=== PATIENT | female | born 1965 | race Caucasian/White ===

== ENCOUNTER 2017-12-17 07:20 | Day surgery (SDC) | payer BC ==
[~2017-12-17 07:20] MED LIST: Buffered Lidocaine 0.9% SYRIN* 5 ML/SYR SYRINGE INTRADERM ONE; Buffered Lidocaine 0.9% SYRIN* 5 ML/SYR SYRINGE ONE; Dexamethasone IV* 4 MG/ML 1 ML (4 MG) ONE; Dexamethasone TAB* 4 MG PO ONE; Famotidine IV* 10 MG/ML 2 ML (20 mg) IV ONE; Famotidine TAB* 20 MG ONE; ceFAZolin 2 GM PREMIX (*) 2 GM/50 ML BAG IVPB ONE
[2017-12-17] MEDS ORDERED: Famotidine IV* 10 MG/ML 2 ML (20 mg) ONE (07:22)
[2017-12-17] MEDS ORDERED: fentaNYL* 50 MCG/ML 2 ML VIAL (100 MCG VIAL) ONE (08:36)
[2017-12-17] MEDS ORDERED: Propofol* 10 MG/ML 20 ML BTL IV PUSH ONE (08:36)
[2017-12-17] MEDS ORDERED: Lidocaine 2% PF * 5 ML VIAL ONE (08:36)
[2017-12-17] MEDS ORDERED: Midazolam* 1 MG/ML 2 ML VIAL (2 MG) ONE (08:36)
[2017-12-17] MEDS ORDERED: Ketorolac INJ* 30 MG/ML 1 ML VIAL ONE (08:59)
[2017-12-17] MEDS ORDERED: Ondansetron INJ* 2 MG/ML VIAL ONE (09:26)
[2017-12-17] MEDS ORDERED: Naloxone* 0.4 MG/ML 1 ML VIAL IV PRN (09:51)
[2017-12-17] MEDS ORDERED: oxyCODONE TAB* 5 MG TAB PO PRN (09:51)
[2017-12-17] MEDS ORDERED: Acetaminophen TAB* 325 MG PO PRN (09:51)
[2017-12-17] MEDS ORDERED: HYDROcodone/ACETAMIN 5-325 MG* 1 TAB PO PRN (09:51)
[2017-12-17] MEDS ORDERED: fentaNYL* 50 MCG/ML 2 ML VIAL (100 MCG VIAL) IV PRN (09:51)
[2017-12-17] MEDS ORDERED: PROCHLORPERAZINE INJ 5 MG/ML 2 ML VIAL IV PRN (09:51)
[2017-12-17] MEDS ORDERED: HYDROcodone/ACETAMIN 5-325 MG* 1 TAB ONE (10:19)
[2017-12-17 12:34] VITALS: BP 134/89
--- NOTE | 2017-12-17 21:05 | OP ---
DATE OF OPERATION: 12/17/17 - [facility] DATE OF : 69 SURGEON: Jose Stroud MD ANESTHESIOLOGIST: Dr. Laura. ANESTHESIA: General endotracheal anesthesia. PRE-OP DIAGNOSIS: Heavy postmenopausal bleeding, on Xarelto. POST-OP DIAGNOSIS: Heavy postmenopausal bleeding, on Xarelto. OPERATIVE PROCEDURE: Dilation, hysteroscopy, curettage, NovaSure ablation. ESTIMATED BLOOD LOSS: Less than 20 cc. FINDINGS: Small anteverted uterus, midline cervix, large rectocele, the endometrium appeared pink throughout. No polyps were seen. COMPLICATIONS: None. COUNT: Sponge, lap, and needle count were correct x2. CONDITION: The patient was brought to recovery room in stable condition. DESCRIPTION OF PROCEDURE: The patient was brought to the operating room. When general anesthesia was found to be adequate, the patient was prepped and draped in the usual sterile fashion in the dorsal lithotomy position. Sequential compression devices were placed and activated. Time-out was performed. Exam under anesthesia was performed with the above findings noted. Weighted speculum was placed in the vagina. The anterior lip of the cervix was grasped with a single-tooth tenaculum and the cervix was gently and easily dilated with the Hegar dilators. Cervical length was found to be 3.5 cm. The sounding length was 7.5. The cavity length was 4 cm. The curettage was performed. Endometrial curettings were sent to Pathology. The NovaSure was introduced. The cavity width was found to be 2.5. The NovaSure was tested and after that was successful, the NovaSure was activated. Ablation time was 1 minute and 46 seconds. The NovaSure was easily removed. The hysteroscope was reintroduced. An excellent result was seen throughout the cavity. The hysteroscope was removed. The single-tooth tenaculum was removed from the anterior lip of the cervix. Excellent hemostasis was noted and the patient was brought to recovery room, awake and in stable condition. [id number]/[facility] #: [id number] [facility]ITAL[facility]
== END 2017-12-17 12:12 | disposition home or self-care (01) ==
LOC: OR 07:20
PROVIDERS: ATTEND Obstetrics & Gynecology
DX: N95.0 Postmenopausal bleeding (principal); Z79.01 Long term (current) use of anticoagulants; N84.0 Polyp of corpus uteri; Z86.718 Personal history of other venous thrombosis and embolism; D45 Polycythemia vera; I10 Essential (primary) hypertension; Z72.0 Tobacco use; R87.610 Atypical squamous cells of undetermined significance on cytologic smear of cervix (ASC-US); R87.810 Cervical high risk human papillomavirus (HPV) DNA test positive
CPT/HCPCS: 88305; A9270-GY; J0690; J1100; J1885; J2250; J2405; J2704; J3010

== ENCOUNTER 2018-03-19 09:46 | Inpatient (IN) | payer BC ==
[2018-03-19] MEDS ORDERED: NS 0.9% 1000 ML* 1,000 ML IV ONE ×2 (10:00→12:42)
[2018-03-19] MEDS ORDERED: Ondansetron INJ* 2 MG/ML VIAL IV ONE (10:11)
[2018-03-19] MEDS ORDERED: Morphine VIAL* 10 MG/ML 1 ML VIAL IV ONE (10:11)
[2018-03-19] MEDS ORDERED: Ondansetron INJ* 2 MG/ML VIAL ONE (10:13)
[2018-03-19] MEDS ORDERED: Morphine VIAL* 4 MG/ML VIAL (1 ml vial) IV ONE (10:13)
[2018-03-19] MEDS ORDERED: HYDROmorphone INJ* 1 MG/ML CARPUJECT SYRINGE IV ONE (10:29)
[2018-03-19] MEDS ORDERED: HYDROmorphone INJ* 2 MG/ML CARPUJECT SYRINGE IV ONE (10:29)
[2018-03-19 10:36] LABS: ABS Basophils 0 10^3/ul (0-0.2); ABS Eosinophils 0.1 10^3/ul (0-0.6); ABS Lymphocytes 1.2 10^3/ul (1.0-4.8); ABS Monocytes 0.5 10^3/ul (0-0.8); ABS Neutrophils 3.8 10^3/ul (1.5-7.7); ABS Nucleated RBC 0 10^3/ul; Eosinophil % 1.5 % (0-6); Hematocrit 45 % (35-47); Hemoglobin 14.4 g/dl (12.0-16.0); Lymphocyte % 21.6 % (25-47); Mean Corpuscular HGB Conc 32 g/dl (31-36); Mean Corpuscular Hemoglobin 29 pg (27-31); Mean Corpuscular Volume 90 fL (80-97); Mean Platelet Volume 8.2 um3 (7.4-10.4); Nucleated Red Blood Cells % 0.1; Platelet Count 312 10^3/ul (150-450); Red Blood Count 5.05 10^6/ul (4.0-5.4); Red Cell Distribution Width 20 % (10.5-15); White Blood Count 5.6 10^3/ul (3.5-10.8)
[2018-03-19] MEDS ORDERED: HYDROmorphone INJ* 2 MG/ML CARPUJECT SYRINGE ONE (10:36)
[2018-03-19 10:49] LABS: EGFR Non-African American 114.6 (>60); INR 1.52 (0.77-1.02)
--- NOTE | 2018-03-19 11:28 | RAD ---
Indication: Abdominal pain, vomiting. CT of the abdomen and pelvis was performed without oral or IV contrast administration. Coronal and sagittal reconstructed images were obtained. The lung bases demonstrate no pleural fluid, pneumonia or pneumothorax. Heart demonstrates no pericardial effusion. Liver is normal in size. No focal lesions or intrahepatic ductal dilatation is noted. The gallbladder demonstrates likely gallstones. No pericholecystic fluid or wall thickening is noted. The spleen demonstrates calcifications likely from calcified granulomas. The pancreas demonstrates no mass or pancreatic duct dilatation. The common duct is not dilated. No adrenal masses are noted. The kidneys demonstrate no hydronephrosis in either kidney. The urinary bladder is unremarkable. There is a small supraumbilical hernia containing fat. No bowel herniation or strangulation is noted. There is extensive diverticulosis without definite evidence of diverticulitis is noted. There is no evidence of free air to suggest perforation. The bony structures are grossly unremarkable. Pelvic ring is otherwise unremarkable. IMPRESSION: No evidence of abnormal masses are identified. Diverticulosis without definite evidence of diverticulitis. Cholelithiasis without biliary duct dilatation. There is a supraumbilical hernia containing omentum. No evidence of free air is noted. No evidence of obstructive uropathy.
[2018-03-19] MEDS ORDERED: HYDROmorphone INJ* 2 MG/ML CARPUJECT SYRINGE IV SLOW PU ONE (11:46)
[2018-03-19 13:20] LABS: Urine Appearance Cloudy; Urine Blood 1+ (Negative); Urine Color Yellow; Urine Ketones Trace (Negative); Urine Protein Negative (Negative); Urine Urobilinogen Negative (Negative)
--- NOTE | 2018-03-19 13:51 | RAD ---
Indication: Right upper quadrant pain. Real-time sonography of the right upper quadrant was performed. Liver is normal in size measuring 16.2 cm in length. No focal lesions or intrahepatic ductal dilatation is noted. The gallbladder demonstrates multiple gallstones with mild gallbladder wall thickening measuring 3.6 mm. No pericholecystic fluid is identified. There is sludge within the gallbladder. The patient does have a positive sonographic Brown's sign. Common duct measures 7 mm. The right kidney measures 11.3 x 5.5 x 6.3 cm. The pancreas head, neck and proximal body demonstrates no mass or pancreatic duct dilatation. IMPRESSION: Cholelithiasis with mild gallbladder wall thickening measuring up to 3.6 mm. Patient does have a positive sonographic Brown's sign.
[2018-03-19] MEDS ORDERED: HYDROcodone/ACETAMIN 5-325 MG* 1 TAB PO PRN (15:00)
[2018-03-19] MEDS ORDERED: Ondansetron INJ* 2 MG/ML VIAL IV PRN (15:00)
[2018-03-19] MEDS ORDERED: Piperacillin/Tazobac ADVAN(*) 3.375 GM in NS 0.9% 100 ML* 100 ML IVPB ONE (15:21)
[2018-03-19] MEDS ORDERED: Piperacillin/Tazobac (*) 3.375 GM BAG ONE (15:32)
[2018-03-19] MEDS: NS 0.9% 1000 ML* 1,000 ML IV SCH (15:36)
[2018-03-19] MEDS ORDERED: Labetalol IV* 5 MG/ML 20 ML VIAL IV PUSH PRN (15:53)
[2018-03-19] MEDS ORDERED: ceFOXitin 2 GM IVPREMIX* 2 GM/50 ML BAG IVPB SCH (16:00)
[2018-03-19] MEDS ORDERED: Zosyn per Pharmacy* NOTE FOLLOW UP SCH (16:00)
[2018-03-19] MEDS ORDERED: ZOSYN 3.375 GM x ONE DOSE over 30 miuntes IVPB ×2 (16:00)
[2018-03-19] MEDS: HYDROmorphone INJ* 2 MG/ML CARPUJECT SYRINGE IV SLOW PU PRN ×5 (16:42→23:29)
--- NOTE | 2018-03-19 16:44 | ED ---
Freddy Astorga Jennifer, scribed for Soham Neal MD on 03/19/18 at 1013 . Abdominal Pain/Female - HPI Summary HPI Summary: The patient is a 52 year old female who presents with severe upper abdominal pain when she woke up this morning. The patient had a colonoscopy yesterday. She additionally complains of vomiting and feeling bloated. - History of Current Complaint Chief Complaint: EDAbdPain Stated Complaint: VOMITING/ABD PAIN Time Seen by Provider: 03/19/18 09:59 Hx Obtained From: Patient Hx Last Menstrual Period: PERIMENOPAUSAL Onset/Duration: Sudden Onset, Lasting Hours, Still Present, Worse Since - this morning Timing: Constant Severity Initially: Severe Severity Currently: Severe Pain Intensity: 10 Pain Scale Used: 0-10 Numeric Location: Diffuse Radiates: No Aggravating Factor(s): Nothing Alleviating Factor(s): Nothing Associated Signs and Symptoms: Positive: Vomiting, Other: - Bloating Allergies/Adverse Reactions: Allergies Allergy/AdvReac Type Severity Reaction Status Date / Time Adhesive Tape Allergy Itching Verified 03/19/18 10:17 LAUNDRY DETERGENT AdvReac Mild Rash And Uncoded 03/19/18 10:17 Itching Home Medications: Home Medications Citalopram TAB* [CeleXA TAB*] 20 mg PO DAILY 03/19/18 [History Confirmed ] Metoprolol Tartrate TAB* [Lopressor TAB*] 25 mg PO BID 03/19/18 [History Confirmed 03/19/18] Omeprazole CAP* [Prilosec CAP* 20 MG] 40 mg PO DAILY 03/19/18 [History Confirmed 03/19/18] Rivaroxaban TAB(*) [Xarelto 20 mg] 20 mg PO DAILY 03/19/18 [History Confirmed ] amLODIPine TAB* [Norvasc 5 mg TAB*] 5 mg PO DAILY 03/19/18 [History Confirmed ] clonazePAM TAB(*) [KlonoPIN TAB(*)] 0.5 mg PO TID PRN 03/19/18 [History Confirmed 03/19/18] PMH/Surg Hx/FS Hx/Imm Hx Endocrine/Hematology History: Denies: Hx Diabetes, Hx Thyroid Disease Cardiovascular History: Reports: Hx Hypertension - ON MEDICATON, Other Cardiovascular Problems/Disorders - PRE VENTRICAL CONTARACTIONS AND MITRAL REGURITATION Respiratory History: Reports: Hx Sleep Apnea Denies: Hx Asthma, Hx Chronic Obstructive Pulmonary Disease (COPD) GI History: Reports: Hx Gastroesophageal Reflux Disease - ON MEDICATION, Hx Hiatal Hernia Denies: Hx Ulcer History: Denies: Hx Renal Disease Sensory History: Reports: Hx Contacts or Glasses - GLASSES Denies: Hx Hearing Aid Opthamlomology History: Reports: Hx Contacts or Glasses - GLASSES Psychiatric History: Reports: Hx Anxiety - ON MEDICATION, Hx Depression - Cancer History Hx Chemotherapy: No Hx Radiation Therapy: No - Surgical History Surgery Procedure, Year, and Place: facial reconstruction - multiple. titanium plate under right eye. D&C. LAPAROSCOPY [facility]. LASER SURGERY DYSPLASIA [facility]. PLASTIC SURGERY [facility] Anesthesia Reactions: Yes - BAD HEADACHE Infectious Disease History: No Infectious Disease History: Denies: Hx Hepatitis, Hx Human Immunodeficiency Virus (HIV), Traveled Outside the [place] in Last 30 Days - Family History Known Family History: Negative: Renal Disease - Social History Alcohol Use: Daily Alcohol Amount: 2-3 beers Substance Use Type: Reports: None, Prescribed Smoking Status (MU): Heavy Every Day Tobacco Smoker Type: Cigarettes Amount Used/How Often: 3/4-1PPD Length of Time of Smoking/Using Tobacco: "far too many" Have You Smoked in the Last Year: No Review of Systems Negative: Fever Positive: Abdominal Pain, Vomiting, Other - Feeling bloated All Other Systems Reviewed And Are Negative: Yes Physical Exam - Summary Physical Exam Summary: General: moderate pain distress Skin: warm, color reflects adequate perfusion, dry Head: normal Eyes: EOMI, JERRICA ENT: normal Neck: supple, nontender Respiratory: CTA, breath sounds present Cardiovascular: RRR Abdomen: tympanitic to percussion, diffuse tenderness, worse in the upper abdomen Bowel: high pitched bowel sounds Musculoskeletal: normal, strength/ROM intact Neurological: normal, sensory/motor intact, A&O x3 Psychological: affect/mood appropriate Triage Information Reviewed: Yes Vital Signs On Initial Exam: Initial Vitals Temp Pulse Resp BP Pulse Ox 97 F 77 22 127/94 100 03/19/18 09:59 03/19/18 09:59 03/19/18 09:59 03/19/18 09:59 03/19/18 09:59 Vital Signs Reviewed: Yes Diagnostics - Vital Signs Vital Signs Temp Pulse Resp BP Pulse Ox 04/21/18 09:59 97 F 77 22 127/94 100 - Laboratory Lab Results: Lab Results 03/19/18 03/19/18 03/19/18 Range/Units 10:05 10:05 10:05 WBC 5.6 (3.5-10.8) 10^3/ul RBC 5.05 (4.0-5.4) 10^6/ul Hgb 14.4 (12.0-16.0) g/dl Hct 45 (35-47) % MCV 90 (80-97) fL MCH 29 (27-31) pg MCHC 32 (31-36) g/dl RDW 20 H (10.5-15) % Plt Count 312 (150-450) 10^3/ul MPV 8.2 (7.4-10.4) um3 Neut % (Auto) 66.8 (38-83) % Lymph % (Auto) 21.6 L (25-47) % [place] % (Auto) 9.5 H (0-7) % Eos % (Auto) 1.5 (0-6) % Baso % (Auto) 0.6 (0-2) % Absolute Neuts (auto) 3.8 (1.5-7.7) 10^3/ul Absolute Lymphs (auto) 1.2 (1.0-4.8) 10^3/ul Absolute Monos (auto) 0.5 (0-0.8) 10^3/ul Absolute Eos (auto) 0.1 (0-0.6) 10^3/ul Absolute Basos (auto) 0 (0-0.2) 10^3/ul Absolute Nucleated RBC 0 10^3/ul Nucleated RBC % 0.1 INR (Anticoag Therapy) 1.52 H (0.77-1.02) APTT 38.1 H (26.0-36.3) seconds Sodium 139 (139-145) mmol/L Potassium 3.7 (3.5-5.0) mmol/L Chloride 104 (101-111) mmol/L Carbon Dioxide 23 (22-32) mmol/L Anion Gap 12 H (2-11) mmol/L BUN 6 (6-24) mg/dL Creatinine 0.56 (0.51-0.95) mg/dL Est GFR ( Amer) 147.4 (>60) Est GFR (Non-Af Amer) 114.6 (>60) BUN/Creatinine Ratio 10.7 (8-20) Glucose 132 H (70-100) mg/dL Lactic Acid (0.5-2.0) mmol/L Calcium 9.1 (8.6-10.3) mg/dL Total Bilirubin 0.20 (0.2-1.0) mg/dL AST 20 (13-39) U/L ALT 16 (7-52) U/L Alkaline Phosphatase 139 H (34-104) U/L Total Creatine Kinase 78 (10-223) U/L CK-MB (CK-2) 2.2 (0.6-6.3) ng/mL Troponin I 0.00 (<0.04) ng/mL C-Reactive Protein 13.87 H (< 5.00) mg/L Total Protein 7.0 (6.4-8.9) g/dL Albumin 3.9 (3.2-5.2) g/dL Globulin 3.1 (2-4) g/dL Albumin/Globulin Ratio 1.3 (1-3) Lipase 38 (11.0-82.0) U/L Urine Color Urine Appearance Urine pH (5-9) Ur Specific [place] (1.010-1.030) Urine Protein (Negative) Urine Ketones (Negative) Urine Blood (Negative) Urine Nitrate (Negative) Urine Bilirubin (Negative) Urine Urobilinogen (Negative) Ur Leukocyte Esterase (Negative) Urine WBC (Auto) (Absent) Urine RBC (Auto) (Absent) Ur Squamous Epith Cells (Absent) Urine Bacteria (Absent) Urine Glucose (Negative) 03/19/18 03/19/18 Range/Units 10:05 12:55 WBC (3.5-10.8) 10^3/ul RBC (4.0-5.4) 10^6/ul Hgb (12.0-16.0) g/dl Hct (35-47) % MCV (80-97) fL MCH (27-31) pg MCHC (31-36) g/dl RDW (10.5-15) % Plt Count (150-450) 10^3/ul MPV (7.4-10.4) um3 Neut % (Auto) (38-83) % Lymph % (Auto) (25-47) % [place] % (Auto) (0-7) % Eos % (Auto) (0-6) % Baso % (Auto) (0-2) % Absolute Neuts (auto) (1.5-7.7) 10^3/ul Absolute Lymphs (auto) (1.0-4.8) 10^3/ul Absolute Monos (auto) (0-0.8) 10^3/ul Absolute Eos (auto) (0-0.6) 10^3/ul Absolute Basos (auto) (0-0.2) 10^3/ul Absolute Nucleated RBC 10^3/ul Nucleated RBC % INR (Anticoag Therapy) (0.77-1.02) APTT (26.0-36.3) seconds Sodium (139-145) mmol/L Potassium (3.5-5.0) mmol/L Chloride (101-111) mmol/L Carbon Dioxide (22-32) mmol/L Anion Gap (2-11) mmol/L BUN (6-24) mg/dL Creatinine (0.51-0.95) mg/dL Est GFR ( Amer) (>60) Est GFR (Non-Af Amer) (>60) BUN/Creatinine Ratio (8-20) Glucose (70-100) mg/dL Lactic Acid 2.5 H* (0.5-2.0) mmol/L Calcium (8.6-10.3) mg/dL Total Bilirubin (0.2-1.0) mg/dL AST (13-39) U/L ALT (7-52) U/L Alkaline Phosphatase (34-104) U/L Total Creatine Kinase (10-223) U/L CK-MB (CK-2) (0.6-6.3) ng/mL Troponin I (<0.04) ng/mL C-Reactive Protein (< 5.00) mg/L Total Protein (6.4-8.9) g/dL Albumin (3.2-5.2) g/dL Globulin (2-4) g/dL Albumin/Globulin Ratio (1-3) Lipase (11.0-82.0) U/L Urine Color Yellow Urine Appearance Cloudy Urine pH 6.0 (5-9) Ur Specific [place] 1.010 (1.010-1.030) Urine Protein Negative (Negative) Urine Ketones Trace A (Negative) Urine Blood 1+ A (Negative) Urine Nitrate Negative (Negative) Urine Bilirubin Negative (Negative) Urine Urobilinogen Negative (Negative) Ur Leukocyte Esterase Negative (Negative) Urine WBC (Auto) Trace(0-5/hpf) (Absent) Urine RBC (Auto) Absent (Absent) Ur Squamous Epith Cells Present A (Absent) Urine Bacteria Absent (Absent) Urine Glucose Negative (Negative) Result Diagrams: 03/19/18 10:05 03/19/18 10:05 Lab Statement: Any lab studies that have been ordered have been reviewed, and results considered in the medical decision making process. - CT CT Abd/Pel CT Interpretation: Positive (See Comments) - No evidence of abnormal masses are identified. Diverticulosis without definite evidence of diverticulitis. Cholelithiasis without biliary duct dilatation. There is a supraumbilical hernia containing omentum. No evidence of free air is noted. No evidence of obstructive uropathy. Dr. Neal has reviewed this report. CT Interpretation Completed By: Radiologist - EKG 11:44 Cardiac Rate: NL EKG Rhythm: Sinus Rhythm - [address] Segment: Non-Specific - Flipped T waves in anterior leads Ectopy: None - Additional Comments Diagnostic Additional Comments: Gallbladder US. Interpreted by a radiologist. IMPRESSION: Cholelithiasis with mild gallbladder wall thickening measuring up to 3.6 mm. Patient does have a positive sonographic Brown's sign. Dr. Neal has reviewed this report. Abdominal Pain Fem Course/Dx - Course Course Of Treatment: Medications reviewed. Allergies noted. BP noted and advised to follow up with PCP. DISCUSSED WITH DR MARTEL, GI, AND DR SCOTT, SURGERY. ADMIT SURGERY. - Diagnoses Provider Diagnoses: HTN (hypertension), Abdominal pain, Cholelithiases - Provider Notifications Discussed Care Of Patient With: Simone Martel Time Discussed With Above Provider: 12:01 Discharge - Sign-Out/Discharge Documenting (check all that apply): Discharge - Discharge Plan Condition: Stable Disposition: ADMITTED TO [facility] - Billing Disposition and Condition Condition: STABLE Disposition: [facility]OSP-[facility] [place] The documentation as recorded by the Freddy friedman Jennifer accurately reflects the service I personally performed and the decisions made by Ángel gale William, MD.
--- NOTE | 2018-03-19 17:39 | CONS ---
GASTROENTEROLOGY CONSULT: DATE: 03/19/18 REASON FOR CONSULTATION: Right upper quadrant pain 1 day after initial screening colonoscopy with non-electrified snare excision of cecal polyp. INDICATION: This 52-year-old smoker with polycythemia vera, currently treated with Xarelto, had her first routine colonoscopy 24 hours ago. She denies any gastrointestinal problems prior to the colonoscopy. It went fairly uneventfully with a small benign appearing cecal polyp removed via cold snare. She went home and had a light lunch and a light dinner and was fine when she went to bed. She awakened at 6 a.m. with the right upper quadrant pain. It just got worse and worse. She took some Tums (about once a month occurrence), had vomited and continued to feel worse and so called in to the office. It was clear there would be no resolution via a telephone conversation and it was recommended that she come to the emergency room. In the ER, she has had continuing right upper quadrant pain. It has not shifted. She did have 1 episode of vomiting, but no fever. CT and labs have been done, showing no pericolonic inflammation and a normal white count. With the focality of the pain, a right upper quadrant ultrasound has been done. It does show gallstones and some wall thickening. PAST MEDICAL HISTORY: 1. Smoking - heavy, 2 packs or more a day. 2. Hypertension. 3. Polycythemia vera - followed by Dr Randhawa bone marrow biopsy, January 2012, initially treated with Hydrea and now just with Xarelto - she had a second opinion at [facility] a year ago 4. Left leg DVTs - twice. 5. Dysfunctional uterine bleeding - multiple procedures including ablation, November [address] Stroud SOCIAL HISTORY: She is , works at a [employer]. REVIEW OF SYSTEMS: No history of CVA, seizure, syncope, VA, palpitations, arrhythmia, hemoptysis, prior abdominal surgery, or recent falls. PHYSICAL EXAM: She is an uncomfortable middle-aged woman, lying in bed, holding her right costal margin. HEENT exam shows no icterus. Mucous membranes are normal. She has no adenopathy. Her lungs are clear and heart sounds are regular. The abdomen is symmetric with normal bowel sounds. There is some tenderness at the mid axillary line, costal margin on the right. There is no tenderness in the other 4 quadrants. Rectal deferred. Extremities show no edema or asymmetry. Neurologic - normal movement of all 4 extremities, strength, bulk, and cranial nerves. IMPRESSION: This 52-year-old woman, 1 day after colonoscopy and polypectomy of relatively small lesion done without cautery, has a right subcostal pain. Although the timing strongly suggested a relationship to the colonoscopy (she might have had a mini erf or some bleeding and tracking of fluid as the cause for the shift in pain) that is somewhat unusual and at this point, attention is being turned to other considerations, which might include a retrocecal appendix tracking into the right upper quadrant or of course the gallbladder, which does have stones on ultrasound. There were no stones on an ultrasound 3 years ago. She will be admitted and placed on antibiotics, n.p.o. status, and her course observed. [id number]/[facility] #: [id number] MTDD
[2018-03-19] MEDS: Enoxaparin(*) 40 MG/0.4 ML SYR SUBCUT SCH (17:41)
[2018-03-19] MEDS ORDERED: Nicotine Inhaler* 10 MG AMP INH PRN (18:04)
[2018-03-19] MEDS ORDERED: Mouth Piece, Nicotine* 1 EACH CARTRIDGE INH PRN ×2 (18:04)
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
[2018-03-19] MEDS ORDERED: Nicotine GUM* 2 MG PO PRN (19:37)
[2018-03-19] MEDS: Piperacillin/Tazobactam 13.5 GM IV 24 hour continuous infusion IVPB SCH ×2 (20:16)
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
[2018-03-19] MEDS ORDERED: Nicotine Patch Removal NOTE PATCH OFF SCH (21:00)
[2018-03-20] MEDS: HYDROmorphone INJ* 2 MG/ML CARPUJECT SYRINGE IV SLOW PU PRN ×12 (02:07→22:03)
[2018-03-20] MEDS: NS 0.9% 1000 ML* 1,000 ML IV SCH ×3 (02:13→23:04)
[2018-03-20 05:47] LABS: ABS Basophils 0 10^3/ul (0-0.2); ABS Eosinophils 0.1 10^3/ul (0-0.6); ABS Lymphocytes 0.7 10^3/ul (1.0-4.8); ABS Monocytes 0.9 10^3/ul (0-0.8); ABS Neutrophils 11.8 10^3/ul (1.5-7.7); ABS Nucleated RBC 0 10^3/ul; Eosinophil % 0.4 % (0-6); Hematocrit 39 % (35-47); Hemoglobin 12.3 g/dl (12.0-16.0); Lymphocyte % 5.3 % (25-47); Mean Corpuscular HGB Conc 32 g/dl (31-36); Mean Corpuscular Hemoglobin 29 pg (27-31); Mean Corpuscular Volume 90 fL (80-97); Mean Platelet Volume 8.4 um3 (7.4-10.4); Nucleated Red Blood Cells % 0; Platelet Count 248 10^3/ul (150-450); Red Blood Count 4.32 10^6/ul (4.0-5.4); Red Cell Distribution Width 20 % (10.5-15); White Blood Count 13.4 10^3/ul (3.5-10.8)
[2018-03-20 06:02] LABS: EGFR Non-African American 119.5 (>60)
[2018-03-20] MEDS: Nicotine PATCH 21 MG/24 HR* PATCH TRANSDERM SCH (07:29)
--- NOTE | 2018-03-20 07:57 | PN ---
Progress Note - Progress Note Date of Service: 03/20/18 Note: HD#2 cholecystitis Afeb, VS noted UO adeq, no stool Still w/ RUQ pain, No N/V Color good, looks uncomfortable Abd-obese, soft, quite tender RUQ, +Brown's sign WBC 13K, lytes nl, lactic 0.7, LFT's nl IMP: Cholelithiasis, cholecystitis Cont abx Medical issues per hospitalist Keep off xarelto Probable lap grace 03/21
--- NOTE | 2018-03-20 09:10 | PN ---
Subjective Date of Service: 03/20/18 Interval History: Patient seen and examined at bedside. Denies fever, shortness of breath, chest discomfort, N/V/D. Pt states that when her oxygen saturation is low she is experiencing chills, she also reports continued right upper quad pain. Pt states that she drinks 2 glasses of wine and 3 mixed drinks daily. Family History: Unchanged from Admission Social History: Unchanged from Admission Past Medical History: Unchanged from Admission Objective Active Medications: Enoxaparin Sodium (Lovenox(*)) 40 mg SUBCUT Q24H [facility] Hydromorphone HCl (Dilaudid Inj*) 0.5 mg IV SLOW PU Q1H PRN Reason: PAIN Sodium Chloride (Ns 0.9% 1000 Ml*) 1,000 mls @ 100 mls/hr IV PER RATE [facility] Piperacillin Sod/Tazobactam (Sod 13.5 gm/ Sodium Chloride) 500 mls @ 20.833 mls /hr IVPB Q24H [facility] Nicotine (Nicotine Patch 21 Mg/24 Hr*) 1 patch TRANSDERM DAILY@0800 [facility] Nicotine Polacrilex (Nicotine Gum*) 2 mg PO Q2H PRN Reason: CRAVING Ondansetron HCl (Zofran Inj*) 4 mg IV Q4H PRN Reason: NAUSEA/VOMITING Pharmacy Consult (Zosyn Per Pharmacy*) 1 note FOLLOW UP .ZOSYN PER PHARMACY [facility] Pharmacy Profile Note (Nicotine Patch Removal Note*) 1 note PATCH OFF 2100 [facility] Vital Signs - 8 hr 03/20/18 03/20/18 03/20/18 02:07 03:10 03:47 Temperature 99.3 F Pulse Rate 104 Respiratory 20 16 18 Rate Blood Pressure 118/66 (mmHg) O2 Sat by Pulse 92 Oximetry 03/20/18 03/20/18 03/20/18 04:01 06:19 06:20 Temperature Pulse Rate Respiratory 20 18 18 Rate Blood Pressure (mmHg) O2 Sat by Pulse Oximetry 03/20/18 03/20/18 07:28 07:33 Temperature Pulse Rate Respiratory 16 16 Rate Blood Pressure (mmHg) O2 Sat by Pulse Oximetry Oxygen Devices in Use Now: Nasal Cannula - 3L Appearance: NAD, sitting up in bed Ears/Nose/Mouth/Throat: Mucous Membranes Moist Respiratory: Symmetrical Chest Expansion and Respiratory Effort, Clear to Auscultation Cardiovascular: NL Sounds; No Murmurs; No JVD, RRR Abdominal: NL Sounds; No Tenderness; No Distention Extremities: No Edema Skin: No Rash or Ulcers Neurological: Alert and Oriented x 3, NL Muscle Strength and Tone Lines/Tubes/Other Access: Clean, Dry and Intact Peripheral IV - site benign Nutrition: Taking PO's Result Diagrams: 03/20/18 05:04 03/20/18 05:04 Additional Lab and Data: Assess/Plan/Problems-Billing Assessment: Ms. Bernardo is a 52 yo female with PMH significant for HTN, sleep apnea, anxiety , tobacco abuse, diverticulosis, polycythemia vera, DVT and alcohol abuse who presented to the emergency room with complaints of right upper quad pain and was found to have cholelithiasis with mild gallbladder wall thickening. - Patient Problems (1) Cholelithiasis Comment: - Afebrile, now with leukocytosis and elevated CRP - Management per surgery - Continue zosyn and IVFs According to the RCRI she has 1 point, placing her at a class II risk of 0.9% risk of a major cardiac event. Pt reports a history of MR, but unable to locate a echo record. No furhter work-up at this time. She is medically optimized and may proceed to the OR. (2) Hypoxia Code(s): R09.02 - HYPOXEMIA SNOMED Code(s): 066847969 Comment: - Denies shortness of breath - O2 sats low 80's on room air and low 90's on 3L via NC - Pt was off Xarelto for a procedure - Will check a CTA to eval for a possible PE (3) Alcohol abuse Code(s): F10.10 - ALCOHOL ABUSE, UNCOMPLICATED SNOMED Code(s): 17687558 Comment: - Will start WAM protocol (4) HTN (hypertension) Code(s): I10 - ESSENTIAL (PRIMARY) HYPERTENSION SNOMED Code(s): 97384533 Comment: - SBP 110-140's - Hold Norvasc - Resume metoprolol with hold parameters (5) Polycythemia vera Code(s): D45 - POLYCYTHEMIA VERA SNOMED Code(s): 607320396 Comment: - Platelets are stable - Continue to follow with Dr. Randhawa every 6 months outpatient (6) History of DVT (deep vein thrombosis) Code(s): Z86.718 - PERSONAL HISTORY OF OTHER VENOUS THROMBOSIS AND EMBOLISM SNOMED Code(s): 795308122 Comment: - Xarelto held for possible surgery - Resume Xarelto when ok with surgery (7) Tobacco abuse Code(s): Z72.0 - TOBACCO USE SNOMED Code(s): 008839037 Comment: - Encouraged smoking cessation - Continue nicotine replacement (8) Sleep apnea Code(s): G47.30 - SLEEP APNEA, UNSPECIFIED SNOMED Code(s): 64429973 Comment: - Continue CPAP (9) DVT prophylaxis Code(s): CAY3301 - SNOMED Code(s): 328904905 Comment: - Lovenox and SCDs (10) Full code status Code(s): Z78.9 - OTHER SPECIFIED HEALTH STATUS SNOMED Code(s): 784283055 Status and Disposition: OBV. Disposition per Surgery. Thank you for this consultation, we will continue to follow.
[2018-03-20] MEDS ORDERED: Iohexol 350* (CONTRAST) 500 ML MDV IV ONE (09:13)
[2018-03-20] MEDS ORDERED: LORazepam TAB(*) 1 MG PO SCH (10:00)
--- NOTE | 2018-03-20 10:26 | RAD ---
Indication: Hypoxia. Contrast: Administered 71.2 ml of OMNIPAQUE 350 mg/ml CTA of the chest was performed after IV contrast administration. Coronal and sagittal reconstructed images were obtained. Comparison is made with the previous exam done 12/09/2016 and 03/19/2018. The pulmonary arterial tree is well opacified. There are no filling defects present to suggest pulmonary embolus. The aorta demonstrates no evidence of aortic dissection or aneurysmal dilatation of the thoracic aorta. No evidence of mediastinal or hilar adenopathy is noted. Enlarged left lobe of the thyroid with retrosternal lower pole of the left thyroid with question of a nodule is noted. This is unchanged from previous exam of 1117. Airspace disease is noted along bases likely representing some atelectasis. No pleural fluid is identified. No obvious masses are noted although evaluation is limited due to atelectasis. The visualized abdominal organs are grossly unremarkable. Likely cholelithiasis. There may be pericholecystic fluid present. Ultrasound demonstrated gallstones with thickened wall. IMPRESSION: No definite pulmonary embolus is noted. There is bibasilar atelectasis is noted. Pericholecystic fluid and gallstones are noted. Enlarged left lobe of the thyroid with retrosternal lower pole.
[2018-03-20] MEDS: Enoxaparin(*) 40 MG/0.4 ML SYR SUBCUT SCH (16:26)
[2018-03-20] MEDS: Metoprolol Tartrate TAB* 25 MG PO SCH (20:06)
[2018-03-20] MEDS: Piperacillin/Tazobactam 13.5 GM IV 24 hour continuous infusion IVPB SCH ×2 (20:07)
[2018-03-20] MEDS: Nicotine Patch Removal NOTE PATCH OFF SCH (20:28)
[2018-03-21] MEDS: HYDROmorphone INJ* 2 MG/ML CARPUJECT SYRINGE IV SLOW PU PRN ×11 (01:28→23:58)
[2018-03-21 06:04] LABS: Hematocrit 36 % (35-47); Hemoglobin 11.6 g/dl (12.0-16.0); Mean Corpuscular HGB Conc 32 g/dl (31-36); Mean Corpuscular Hemoglobin 29 pg (27-31); Mean Corpuscular Volume 91 fL (80-97); Mean Platelet Volume 8.4 um3 (7.4-10.4); Platelet Count 193 10^3/ul (150-450); Red Blood Count 4.01 10^6/ul (4.0-5.4); Red Cell Distribution Width 20 % (10.5-15); White Blood Count 13.7 10^3/ul (3.5-10.8)
[2018-03-21 06:24] LABS: EGFR Non-African American 122.1 (>60)
[2018-03-21] MEDS: Nicotine PATCH 21 MG/24 HR* PATCH TRANSDERM SCH (07:29)
[2018-03-21] MEDS: Thiamine TAB* 100 MG TAB PO SCH (07:30)
[2018-03-21] MEDS: Multivitamins/Minerals TAB PO SCH (07:30)
[2018-03-21] MEDS: Folic Acid TAB* 1 MG PO SCH (07:30)
[2018-03-21] MEDS: Metoprolol Tartrate TAB* 25 MG PO SCH ×2 (07:31→21:10)
[2018-03-21] MEDS ORDERED: Famotidine TAB* 20 MG PO ONE (08:45)
[2018-03-21] MEDS: NS 0.9% 1000 ML* 1,000 ML IV SCH ×2 (09:28→20:56)
--- NOTE | 2018-03-21 10:27 | PN ---
Subjective Date of Service: 03/21/18 Interval History: Patient seen and examined at bedside. Denies fever, chills, chest discomfort, N/ V/D. Pt states that she continues to have right upper ABD pain and intermittent shortness of breath. Family History: Unchanged from Admission Social History: Unchanged from Admission Past Medical History: Unchanged from Admission Objective Active Medications: Enoxaparin Sodium (Lovenox(*)) 40 mg SUBCUT Q24H [facility] Folic Acid (Folvite Tab*) 1 mg PO DAILY [facility] Hydromorphone HCl (Dilaudid Inj*) 0.5 mg IV SLOW PU Q1H PRN Reason: PAIN Sodium Chloride (Ns 0.9% 1000 Ml*) 1,000 mls @ 100 mls/hr IV PER RATE [facility] Piperacillin Sod/Tazobactam (Sod 13.5 gm/ Sodium Chloride) 500 mls @ 20.833 mls /hr IVPB Q24H [facility] Lorazepam (Ativan Tab(*)) 0 - 6 mg PO .PER [facility] PROTOCOL [facility] Metoprolol Tartrate (Lopressor Tab*) 25 mg PO BID [facility] Multivitamins/Minerals (Theragran/Minerals Tab*) 1 tab PO DAILY [facility] Nicotine (Nicotine Patch 21 Mg/24 Hr*) 1 patch TRANSDERM DAILY@0800 [facility] Nicotine Polacrilex (Nicotine Gum*) 2 mg PO Q2H PRN Reason: CRAVING Ondansetron HCl (Zofran Inj*) 4 mg IV Q4H PRN Reason: NAUSEA/VOMITING Pharmacy Consult (Zosyn Per Pharmacy*) 1 note FOLLOW UP .ZOSYN PER PHARMACY [facility] Pharmacy Profile Note (Nicotine Patch Removal Note*) 1 note PATCH OFF 2100 [facility] Thiamine HCl (Vitamin B-1 Tab*) 100 mg PO DAILY [facility] Vital Signs - 8 hr 03/21/18 03/21/18 03/21/18 03:31 03:32 05:02 Temperature 98.5 F Pulse Rate 90 Respiratory 18 16 14 Rate Blood Pressure 119/69 (mmHg) O2 Sat by Pulse 92 Oximetry 03/21/18 03/21/18 03/21/18 06:06 06:14 07:24 Temperature 98.9 F Pulse Rate 96 Respiratory 16 20 13 Rate Blood Pressure 142/74 (mmHg) O2 Sat by Pulse 96 Oximetry 03/21/18 03/21/18 03/21/18 07:26 07:31 07:43 Temperature 98.7 F Pulse Rate 91 Respiratory 16 16 16 Rate Blood Pressure 114/70 (mmHg) O2 Sat by Pulse 94 Oximetry 03/21/18 03/21/18 03/21/18 08:03 08:35 09:26 Temperature 98.5 F Pulse Rate 81 Respiratory 14 15 16 Rate Blood Pressure 93/50 (mmHg) O2 Sat by Pulse 93 Oximetry Oxygen Devices in Use Now: Nasal Cannula - 3L Appearance: NAD, sitting up in a chair Ears/Nose/Mouth/Throat: Mucous Membranes Moist Respiratory: Symmetrical Chest Expansion and Respiratory Effort, Clear to Auscultation - , diminished Cardiovascular: NL Sounds; No Murmurs; No JVD, RRR Abdominal: - - Bowel sounds present, ABD tender in RUQ Extremities: No Edema Skin: No Rash or Ulcers Neurological: Alert and Oriented x 3, NL Muscle Strength and Tone Lines/Tubes/Other Access: Clean, Dry and Intact Peripheral IV - site benign Nutrition: Taking PO's Result Diagrams: 03/21/18 05:42 03/21/18 05:42 Additional Lab and Data: Microbiology and Other Data: Microbiology 03/19/18 23:50 Aerobic Blood Culture - Preliminary Blood Venous No Growth Day 1 Anaerobic Blood Culture - Preliminary No Growth Day 1 03/19/18 17:08 Aerobic Blood Culture - Preliminary Blood Venous No Growth Day 1 Anaerobic Blood Culture - Preliminary No Growth Day 1 Assess/Plan/Problems-Billing Assessment: Ms. Bernardo is a 52 yo female with PMH significant for HTN, sleep apnea, anxiety , tobacco abuse, diverticulosis, polycythemia vera, DVT and alcohol abuse who presented to the emergency room with complaints of right upper quad pain and was found to have cholelithiasis with mild gallbladder wall thickening. - Patient Problems (1) Cholelithiasis Comment: - Afebrile, now with leukocytosis and elevated CRP - Management per surgery - Continue zosyn and IVFs According to the RCRI she has 1 point, placing her at a class II risk of 0.9% risk of a major cardiac event. Pt reports a history of MR, but unable to locate an echo record. She has new T-wave inversion on EKG when compaired to prior. Will ask Cardiology to consult and obtain an echo. (2) Acute electrocardiogram changes Code(s): R94.31 - ABNORMAL ELECTROCARDIOGRAM [ECG] [EKG] SNOMED Code(s): 444814187 Comment: - Pt has diffuse T wave inversions when compared to 2012 EKG - Echo pending - Cardiology consult, pending (3) Hypoxia Code(s): R09.02 - HYPOXEMIA SNOMED Code(s): 526564725 Comment: - Denies shortness of breath - O2 sats low 80's on room air and low 90's on 3L via NC - CTA negative for PE, shows atelectasis - Encouraged IS use, cough & deep breathing (4) Alcohol abuse Code(s): F10.10 - ALCOHOL ABUSE, UNCOMPLICATED SNOMED Code(s): 53454345 Comment: - WAM 1-5 - Continue WAM protocol (5) HTN (hypertension) Code(s): I10 - ESSENTIAL (PRIMARY) HYPERTENSION SNOMED Code(s): 47603329 Comment: - SBP 90-120's - Hold Norvasc - Resume metoprolol with hold parameters (6) Polycythemia vera Code(s): D45 - POLYCYTHEMIA VERA SNOMED Code(s): 908464858 Comment: - Platelets are stable - Continue to follow with Dr. Randhawa every 6 months outpatient (7) History of DVT (deep vein thrombosis) Code(s): Z86.718 - PERSONAL HISTORY OF OTHER VENOUS THROMBOSIS AND EMBOLISM SNOMED Code(s): 680810465 Comment: - Xarelto held for possible surgery - Resume Xarelto when ok with surgery (8) Tobacco abuse Code(s): Z72.0 - TOBACCO USE SNOMED Code(s): 720191765 Comment: - Encouraged smoking cessation - Continue nicotine replacement (9) Sleep apnea Code(s): G47.30 - SLEEP APNEA, UNSPECIFIED SNOMED Code(s): 73709340 Comment: - Continue CPAP (10) DVT prophylaxis Code(s): NCD6077 - SNOMED Code(s): 165155606 Comment: - Lovenox and SCDs (11) Full code status Code(s): Z78.9 - OTHER SPECIFIED HEALTH STATUS SNOMED Code(s): 333193814 Status and Disposition: OBV. Disposition per Surgery. Thank you for this consultation, we will continue to follow. Attending: Cristiana Alvares
--- NOTE | 2018-03-21 13:42 | CONS ---
CARDIOLOGY CONSULTATION: DATE OF CONSULT: 03/21/18 INDICATION FOR CONSULTATION: Abnormal EKG, preop gallbladder surgery. HISTORY OF PRESENT ILLNESS: The patient is a 52-year-old female with a history of polycythemia vera, hypertension, tobacco use, who came to the emergency room because of right upper quadrant pain. She was ultimately diagnosed with cholecystitis and is potentially scheduled for gallbladder surgery in the very near future. The patient's EKG on arrival on 03/19/18 demonstrated normal sinus rhythm with deep Q-waves inversion s in V2 through V3 and V4 compared to an EKG in 2011. These T- wave inversions are new. In speaking with the patient she does not report any classic cardiac symptoms. She denies any true c hest pain. She denies any palpitations. No episodes of lightheadedness, dizziness or syncope. The patient did undergo a colonoscopy last Wednesday, which was unremarkable. She was admitted to the [facility] the next day with right upper quadrant pain. The patient denies any cardiac history. PAST MEDICAL HISTORY: 1. Hypertension. 2. Sleep apnea. 3. Tobacco use. 4. Polycythemia vera. 5. DVT diagnosed in 2015. 6. Diverticulosis. OUTPATIENT MEDICATIONS: 1. Norvasc 5 mg a day. 2. Prilosec 40 mg a day. 3. Metoprolol tartrate 25 mg b.i.d. 4. Celexa 20 mg a day. 5. Klonopin 0.5 mg as needed. 6. Xarelto 20 mg a day. ALLERGIES: To ADHESIVE TAPE. No known drug allergies. FAMILY HISTORY: Her father had his myocardial infarction at 39. He of an [place] at 49. Mother was murdered. SOCIAL HISTORY: She has a long smoking history. She drinks 1 to 5 drinks a day. She is currently em ployed as an office work. PHYSICAL EXAMINATION: Height is 5 feet 3 inches, weight is 177 pounds, temperature 98.5, heart rate 81, respiratory rate is 14, oxygen saturation 93% on room air, blood pressure 100/50. Sclerae anicte popeye. Oropharynx is pink without erythema. Carotids are 2+ without any bruits. JVD is normal. Thyroid is normal. Cardiac Exam: Distant heart sounds, S1, S2 without any obvious murmurs, rubs or gallops . PMI is normal. Lungs clear to auscultation, after coughing there is no rales on exam. There is no dullness to percussion. Abdomen: Mildly tender on the right upper quadrant. Diminished bowel sound s. No hepatosplenomegaly. Extremities: Showed no edema. She has 2+ pulses throughout. The patient is awake, alert and oriented. She moves all 4 extremities equal. LABORATORY DATA: CBC is within normal limits. Her white count is mildly elevated at 13.7. Chemistr ies are within normal limits, BUN 6, creatinine 0.5, her initial troponin was negative. She has an e levated CRP at 114. Again, her EKG shows normal sinus rhythm with T-wave inversions in V2 through V4. New compared to 200 8. The patient did have a stress test in 2011 with exercise nuclear stress test it was normal. IMPRESSION: This is a 52-year-old female with a recent gallbladder attack and is potentially schedul ed for gallbladder surgery in the near future. The patient's EKG shows T-wave inversions compared to old EKG. For now I think further investigation is necessary to risk stratify the patient prior to surgery. Th e patient is scheduled for an echocardiogram and chemical nuclear stress test tomorrow. At this point I do not think any medication changes are necessary. I will see the patient once these test are done tomorrow and make further recommendations at that time. [id number]/[facility] #: [id number]
[2018-03-21] MEDS: Enoxaparin(*) 40 MG/0.4 ML SYR SUBCUT SCH (14:36)
--- NOTE | 2018-03-21 14:48 | PN ---
Progress Note - Progress Note Date of Service: 03/21/18 SOAP: Subjective:Hospital Day #3 cholecystitis no n/v,abd pain RUQ,no chest pain,mild sob;disappointed surgery postponed [] Objective:afeb;VSS;O2 sat 94% on O2;lungs:clear bilat;heart:RRR;abd:+bs,large, tender epigastrium and RUQ,mild rebound tenderness,no guarding;ext:nontender calves Laboratory Results - last 24 hr 03/21/18 03/21/18 05:42 05:42 WBC 13.7 H RBC 4.01 Hgb 11.6 L Hct 36 MCV 91 MCH 29 MCHC 32 RDW 20 H Plt Count 193 MPV 8.4 Sodium 138 L Potassium 3.4 L Chloride 106 Carbon Dioxide 25 Anion Gap 7 BUN 6 Creatinine 0.53 Est GFR ( Amer) 157.0 Est GFR (Non-Af Amer) 122.1 BUN/Creatinine Ratio 11.3 Glucose 90 Calcium 7.8 L Total Bilirubin 0.60 AST 21 ALT 20 Alkaline Phosphatase 92 Total Protein 5.6 L Albumin 3.0 L Globulin 2.6 Albumin/Globulin Ratio 1.2 Beta HCG, Quant 1.30 Vital Signs Temp 98.9 F 03/21/18 11:58 Pulse 85 03/21/18 11:58 Resp 16 03/21/18 14:36 BP 113/63 03/21/18 11:58 Pulse Ox 95 03/21/18 11:58 Intake & Output 03/20/18 03/21/18 03/21/18 18:59 06:59 18:59 Intake Total 996 1470 1412 Output Total 600 400 100 Balance 396 1070 1312 Intake: IV Fluids 996 993 985 NS (0.9%) 993 985 IVPB 477 197 ABX - ZOSYN 477 197 Oral 0 230 Output: Urine 600 400 100 Other: # Bowel Movements 0 [] Assessment:new EKG changes and low 02 sat on RA this morning [] Plan:postpone Dr bJ coates consulted and ordered Echo(done today) and Nuclear stress test for 03/22/18;labs ord for 03/22/18;cont IV abx,clear liqs []
--- NOTE | 2018-03-21 15:43 | ECHO ---
Patient: LEEANNE NUÑEZ [facility] Rec#: [id number] : 1965 Date: 03/21/2018 Age: 52y Height: 160.02 cm / 63.0 in Weight: 80.29 kg / 177.0 lbs Sex: F BSA: 1.84 Room#: [facility] Admit Date#: 03/19/2018 Type: Inpatient Referring: Rubina Cha NP Reading: Moise Muhammad MD Ross Lift Operator: Rubina Henry RDCS CC: Daniela Hernandez NP Transthoracic Echocardiogram Indication: Abnormal EKG BP: 93/50 HR: 88 Rhythm: NSR Findings History: HTN, ALEXANDRE, anxiety, smoker, polycythemia vera, ETOH use, and DVT. Technical Comments: The study quality is fair. Completed at 1450. Left Ventricle: The left ventricular chamber size is normal. There is no left ventricular hypertrophy. Global left ventricular wall motion and contractility are within normal limits. There is normal left ventricular systolic function. The estimated ejection fraction is 55-60%. There is no consistent Doppler evidence of clinically significant diastolic dysfunction. Left Atrium: The left atrium is mildly dilated. Right Ventricle: Moderator Band present. The right ventricular cavity size is normal. The right ventricular global systolic function is normal. Right Atrium: The right atrium is moderately dilated. Aortic Valve: The aortic valve is trileaflet. The aortic valve leaflets are mildly thickened. There is a trace of aortic regurgitation. There is no evidence of aortic stenosis. Mitral Valve: The mitral valve leaflets are mildly thickened. There is mild mitral regurgitation. There is no evidence of mitral stenosis. Tricuspid Valve: The tricuspid valve leaflets are normal. There is trace tricuspid regurgitation. The right ventricular systolic pressure is estimated at 32 mmHg. No pulmonary hypertension is noted. There is no tricuspid stenosis. Pulmonic Valve: The pulmonic valve appears normal. There is a trace pulmonic regurgitation. There is no pulmonic stenosis. Pericardium: There is no significant pericardial effusion. A pericardial fat pad is visualized. Aorta: There is no dilatation of the ascending aorta. There is no dilatation of the aortic arch. There is no dilation of the aortic root. Pulmonary Artery: The main pulmonary artery appears normal. Venous: The inferior vena cava appears normal in size. There is an approximate 50% respiratory change in the inferior vena cava dimension. Summary: There was not any prior study for comparison. Conclusions Global left ventricular wall motion and contractility are within normal limits. There is normal left ventricular systolic function. The estimated ejection fraction is 55-60%. The right ventricular global systolic function is normal. There is a trace of aortic regurgitation. There is no evidence of aortic stenosis. There is mild mitral regurgitation. There is trace tricuspid regurgitation. No pulmonary hypertension is noted. There is no significant pericardial effusion. Measurements Name Value Normal Range RVIDd (AP) 2D 2.5 cm (0.9 - 2.6) RVDdMajor (2D) 4 cm (2.2 - 4.4) RAd ISD 4CH 6 cm (3.4 - 4.9) RA (A4C)W 4.7 cm (2.9 - 4.6) IVSd (2D) 0.9 cm (0.6 - 1) LVPWd (2D) 0.9 cm (0.6 - 1) LVIDd (2D) 5.3 cm (3.6 - 5.4) LVIDs (2D) 4 cm - LV FS (2D) 26 % (25 - 45) Aortic Annulus 1.9 cm (1.4 - 2.6) Ao root diameter (2D) 2.9 cm (2.1 - 3.5) Ascending Ao 2.7 cm (2.1 - 3.4) Aortic arch 2.6 cm (1.8 - 3.4) LA dimension (AP) 2D 4.1 cm (2.3 - 3.8) LAd ISD 4CH 5 cm (2.9 - 5.3) LA ISD 4CH W 4.4 cm (2.5 - 4.5) Name Value Normal Range LA ESV SP 4CH (A/L) 73 ml - LA ESV SP 2CH (A/L) 57 ml - LA ESV BP (A/L) 66 ml - LA ESV BP (A/L) index 36 ml/m2 - LA ESV SP 4CH (MOD) 71 ml - LA ESV SP 2CH (MOD) 54 ml - Name Value Normal Range MV E-wave Vmax 0.97 m/sec - MV deceleration time 214.2 msec - MV A-wave Vmax 0.6 m/sec - MV E:A ratio 1.6 ratio - LV septal e' Vmax 0.08 m/sec - LV lateral e' Vmax 0.14 m/sec - LV E:e' septal ratio 12.13 ratio - LV E:e' lateral ratio 6.93 ratio - Name Value Normal Range AV Vmax 1.83 m/sec - AV VTI 32.6 cm - AV peak gradient 13.48 mmHg - AV mean gradient 6.99 mmHg - LVOT Vmax 0.97 m/sec - LVOT VTI 20.64 cm - LVOT peak gradient 3.82 mmHg - LVOT mean gradient 2.02 mmHg - DENIZ Vmax 1.22 m/sec - Name Value Normal Range TR Vmax 2.7 m/sec - TR peak gradient 29 mmHg - RAP 3 mmHg - RVSP 32 mmHg - IVC diameter 2.1 cm - Name Value Normal Range PV Vmax 0.98 m/sec - PV peak gradient 3.8 mmHg -
[2018-03-21] MEDS: Piperacillin/Tazobactam 13.5 GM IV 24 hour continuous infusion IVPB SCH ×2 (21:05)
[2018-03-21] MEDS: Nicotine Patch Removal NOTE PATCH OFF SCH (21:14)
[2018-03-22] MEDS: HYDROmorphone INJ* 2 MG/ML CARPUJECT SYRINGE IV SLOW PU PRN ×6 (04:47→22:13)
[2018-03-22 05:51] LABS: ABS Basophils 0 10^3/ul (0-0.2); ABS Eosinophils 0.1 10^3/ul (0-0.6); ABS Lymphocytes 0.8 10^3/ul (1.0-4.8); ABS Monocytes 1.3 10^3/ul (0-0.8); ABS Neutrophils 9.8 10^3/ul (1.5-7.7); ABS Nucleated RBC 0 10^3/ul; Eosinophil % 0.7 % (0-6); Hematocrit 36 % (35-47); Hemoglobin 11.2 g/dl (12.0-16.0); Mean Corpuscular HGB Conc 31 g/dl (31-36); Mean Corpuscular Hemoglobin 28 pg (27-31); Mean Corpuscular Volume 91 fL (80-97); Mean Platelet Volume 8.4 um3 (7.4-10.4); Nucleated Red Blood Cells % 0; Platelet Count 180 10^3/ul (150-450); Red Blood Count 3.95 10^6/ul (4.0-5.4); Red Cell Distribution Width 20 % (10.5-15)
[2018-03-22 06:06] LABS: EGFR Non-African American 140.3 (>60)
[2018-03-22] MEDS: Nicotine PATCH 21 MG/24 HR* PATCH TRANSDERM SCH (07:40)
--- NOTE | 2018-03-22 08:27 | PN ---
Progress Note - Progress Note Date of Service: 03/22/18 Note: HD#4 cholecystitis Afeb, VS noted Voiding Still w/ RUQ pain ABd: Tender RUQ no peritonitis Impr: Cholecystitis, on abx Awaiting cardiac clearance for OR D/W hospitalist---will replete K+ Cont DVT prophylaxis
--- NOTE | 2018-03-22 09:31 | PN ---
Subjective Date of Service: 03/22/18 Interval History: Patient seen and examined at bedside. Denies fever, chills, shortness of breath , chest discomfort, N/V/D. Pt continues to have persistent right UQ pain. Family History: Unchanged from Admission Social History: Unchanged from Admission Past Medical History: Unchanged from Admission Objective Active Medications: Enoxaparin Sodium (Lovenox(*)) 40 mg SUBCUT Q24H [facility] Folic Acid (Folvite Tab*) 1 mg PO DAILY [facility] Hydromorphone HCl (Dilaudid Inj*) 0.5 mg IV SLOW PU Q1H PRN Reason: PAIN Sodium Chloride (Ns 0.9% 1000 Ml*) 1,000 mls @ 100 mls/hr IV PER RATE [facility] Piperacillin Sod/Tazobactam (Sod 13.5 gm/ Sodium Chloride) 500 mls @ 20.833 mls /hr IVPB Q24H [facility] Lorazepam (Ativan Tab(*)) 0 - 6 mg PO .PER [facility] PROTOCOL [facility] Metoprolol Tartrate (Lopressor Tab*) 25 mg PO BID [facility] Multivitamins/Minerals (Theragran/Minerals Tab*) 1 tab PO DAILY [facility] Nicotine (Nicotine Patch 21 Mg/24 Hr*) 1 patch TRANSDERM DAILY@0800 [facility] Nicotine Polacrilex (Nicotine Gum*) 2 mg PO Q2H PRN Reason: CRAVING Ondansetron HCl (Zofran Inj*) 4 mg IV Q4H PRN Reason: NAUSEA/VOMITING Pharmacy Consult (Zosyn Per Pharmacy*) 1 note FOLLOW UP .ZOSYN PER PHARMACY [facility] Pharmacy Profile Note (Nicotine Patch Removal Note*) 1 note PATCH OFF 2100 [facility] Thiamine HCl (Vitamin B-1 Tab*) 100 mg PO DAILY [facility] Vital Signs - 8 hr 03/22/18 03/22/18 03/22/18 01:29 02:59 04:47 Temperature 98.0 F Pulse Rate 75 Respiratory 18 18 17 Rate Blood Pressure 105/62 (mmHg) O2 Sat by Pulse 93 Oximetry 03/22/18 03/22/18 06:03 07:28 Temperature Pulse Rate Respiratory 18 18 Rate Blood Pressure (mmHg) O2 Sat by Pulse Oximetry Oxygen Devices in Use Now: Nasal Cannula - 3L Appearance: NAD, laying in bed Ears/Nose/Mouth/Throat: Mucous Membranes Moist Respiratory: Symmetrical Chest Expansion and Respiratory Effort, Clear to Auscultation Cardiovascular: NL Sounds; No Murmurs; No JVD, RRR Abdominal: - - Bowel sounds present. ABD soft, tender in the RUQ and left mid to LQ Extremities: No Edema Skin: No Rash or Ulcers Neurological: Alert and Oriented x 3, NL Muscle Strength and Tone Lines/Tubes/Other Access: Clean, Dry and Intact Peripheral IV - site benign Nutrition: Taking PO's Result Diagrams: 03/22/18 05:25 03/22/18 05:25 Additional Lab and Data: Microbiology and Other Data: Microbiology 03/19/18 23:50 Aerobic Blood Culture - Preliminary Blood Venous No Growth Day 1 Anaerobic Blood Culture - Preliminary No Growth Day 1 03/19/18 17:08 Aerobic Blood Culture - Preliminary Blood Venous No Growth Day 1 Anaerobic Blood Culture - Preliminary No Growth Day 1 Diagnostic Imaging: TTE on 03/22/18, Summary: There was not any prior study for comparison. Conclusions Global left ventricular wall motion and contractility are within normal limits. There is normal left ventricular systolic function. The estimated ejection fraction is 55-60%. The right ventricular global systolic function is normal. There is a trace of aortic regurgitation. There is no evidence of aortic stenosis. There is mild mitral regurgitation. There is trace tricuspid regurgitation. No pulmonary hypertension is noted. There is no significant pericardial effusion. Assess/Plan/Problems-Billing Assessment: Ms. Bernardo is a 52 yo female with PMH significant for HTN, sleep apnea, anxiety , tobacco abuse, diverticulosis, polycythemia vera, DVT and alcohol abuse who presented to the emergency room with complaints of right upper quad pain and was found to have cholelithiasis with mild gallbladder wall thickening. - Patient Problems (1) Cholelithiasis Comment: - Afebrile, now with leukocytosis and elevated CRP - Management per surgery - Continue zosyn and IVFs According to the RCRI she has 1 point, placing her at a class II risk of 0.9% risk of a major cardiac event. Pt reports a history of MR, but unable to locate an echo record. She has new T-wave inversion on EKG when compaired to prior. Cardiology consulted and echo obtained, undergoing a stress test today. Pending Cardiac clearence prior to surgery. (2) Acute electrocardiogram changes Code(s): R94.31 - ABNORMAL ELECTROCARDIOGRAM [ECG] [EKG] SNOMED Code(s): 463582307 Comment: - Pt has diffuse T wave inversions when compared to 2012 EKG - Echo without significant findings - Cardiology consult, input appreciated - Stress test pending (3) Hypoxia Code(s): R09.02 - HYPOXEMIA SNOMED Code(s): 888380971 Comment: - Denies shortness of breath - O2 sats low 80's on room air and low 90's on 3L via NC - CTA negative for PE, shows atelectasis - Encouraged IS use, cough & deep breathing (4) Electrolyte abnormality Code(s): E87.8 - OTH DISORDERS OF ELECTROLYTE AND FLUID BALANCE, NEC SNOMED Code(s): 189440356 Comment: - Hypokalemia. Will give IV and PO replacement and recheck labs in the AM. Will also add a MG+ to this AM's lab and replace if needed. (5) Alcohol abuse Code(s): F10.10 - ALCOHOL ABUSE, UNCOMPLICATED SNOMED Code(s): 19836736 Comment: - WAM 0-2 - Continue WAM protocol (6) HTN (hypertension) Code(s): I10 - ESSENTIAL (PRIMARY) HYPERTENSION SNOMED Code(s): 54477344 Comment: - SBP 100-120's - Hold Norvasc - Resume metoprolol with hold parameters (7) Polycythemia vera Code(s): D45 - POLYCYTHEMIA VERA SNOMED Code(s): 892919679 Comment: - Platelets are stable - Continue to follow with Dr. Randhawa every 6 months outpatient (8) History of DVT (deep vein thrombosis) Code(s): Z86.718 - PERSONAL HISTORY OF OTHER VENOUS THROMBOSIS AND EMBOLISM SNOMED Code(s): 687672922 Comment: - Xarelto held for possible surgery - Resume Xarelto when ok with surgery (9) Tobacco abuse Code(s): Z72.0 - TOBACCO USE SNOMED Code(s): 017905350 Comment: - Encouraged smoking cessation - Continue nicotine replacement (10) Sleep apnea Code(s): G47.30 - SLEEP APNEA, UNSPECIFIED SNOMED Code(s): 12151014 Comment: - Continue CPAP (11) DVT prophylaxis Code(s): NDI0637 - SNOMED Code(s): 263938378 Comment: - Lovenox and SCDs (12) Full code status Code(s): Z78.9 - OTHER SPECIFIED HEALTH STATUS SNOMED Code(s): 851722581 Status and Disposition: Inpatient. Disposition per Surgery. Thank you for this consultation, we will continue to follow.
[2018-03-22] MEDS ORDERED: Regadenoson* 0.4 MG/5 ML SYRINGE ONE (09:49)
[2018-03-22] MEDS ORDERED: Aminophylline IV* 25 MG/ML 10 ML VIAL ONE (09:49)
[2018-03-22] MEDS ORDERED: Potassium Chloride IV* 40 MEQ in NS 0.9% 250 ML* 250 ML IVPB ONE (11:00)
[2018-03-22] MEDS ORDERED: KCL 20 MEQ/100 ML IVPREMIX* 20 MEQ/100 ML BAG IV SCH (11:00)
[2018-03-22] MEDS: Metoprolol Tartrate TAB* 25 MG PO SCH ×2 (11:15→22:14)
[2018-03-22] MEDS: Folic Acid TAB* 1 MG PO SCH (11:15)
[2018-03-22] MEDS: Multivitamins/Minerals TAB PO SCH (11:15)
[2018-03-22] MEDS: Thiamine TAB* 100 MG TAB PO SCH (11:15)
--- NOTE | 2018-03-22 12:43 | RAD ---
Edited for charges. INDICATION: Abnormal EKG. COMPARISON: Correlation is made with a prior myocardial perfusion study from November 05, 2008. Technique: A single day myocardial perfusion stress study was performed. Initially the resting study was performed. The patient was given an intravenous injection of 10.2 mCi of technetium 99m tetrofosmin and and the heart was imaged in multiple projections. The patient returned later in the day and under the direction of Dr. Muhammad, the patient was given intervenous injection of Lexiscan. Subsequently the patient was given intravenous injection of 25.4 mCi of technetium 99m tetrofosmin and the heart was imaged in multiple projections. Images were reconstructed in the axial, sagittal and coronal planes and in a 3- D format. FINDINGS: The study was not gated due to an arrhythmia. On the attenuated corrected images there is a moderate size area of decreased activity in the anterior wall on the post pharmacologic stress images which appears improved on resting images suggestive of an area of ischemia. This is a change from the prior study. On the attenuated CT images there are small bilateral pleural effusions and dependent lower lobe infiltrates suggestive of atelectasis. This correlates with the prior CT angiogram study from 2 days earlier. IMPRESSION: 1. FINDINGS SUGGESTIVE OF A MODERATE SIZE AREA OF ISCHEMIA IN THE ANTERIOR WALL. 2. SMALL BILATERAL PLEURAL EFFUSIONS. ASSESSMENT: Intermediate risk Based on imaging criteria from ACC/AHA 2002 Guideline Update for the Management of Patients With Chronic Stable Angina Table 23. Noninvasive Risk Stratification. MTDD
[2018-03-22] MEDS: Potassium Chlor TAB* 20 MEQ TAB.ER PO SCH ×2 (13:56→19:09)
[2018-03-22] MEDS: Enoxaparin(*) 40 MG/0.4 ML SYR SUBCUT SCH (16:13)
[2018-03-22] MEDS: Piperacillin/Tazobactam 13.5 GM IV 24 hour continuous infusion IVPB SCH ×2 (20:39)
[2018-03-22] MEDS ORDERED: Magnesium Sulf 4 GM/100 ML IV* 4,000 MG/100 ML BAG IVPB ONE (21:00)
[2018-03-22] MEDS: Nicotine Patch Removal NOTE PATCH OFF SCH (22:57)
[2018-03-23 06:55] LABS: ABS Basophils 0 10^3/ul (0-0.2); ABS Eosinophils 0.1 10^3/ul (0-0.6); ABS Lymphocytes 0.6 10^3/ul (1.0-4.8); ABS Neutrophils 8.2 10^3/ul (1.5-7.7); ABS Nucleated RBC 0 10^3/ul; Eosinophil % 0.6 % (0-6); Hematocrit 36 % (35-47); Hemoglobin 11.5 g/dl (12.0-16.0); Lymphocyte % 6.5 % (25-47); Mean Corpuscular HGB Conc 32 g/dl (31-36); Mean Corpuscular Hemoglobin 29 pg (27-31); Mean Corpuscular Volume 90 fL (80-97); Mean Platelet Volume 8.5 um3 (7.4-10.4); Nucleated Red Blood Cells % 0; Platelet Count 212 10^3/ul (150-450); Red Blood Count 3.99 10^6/ul (4.0-5.4); Red Cell Distribution Width 20 % (10.5-15)
[2018-03-23] MEDS ORDERED: Potassium Chlor TAB* 20 MEQ TAB.ER PO ONE (07:46)
[2018-03-23] MEDS ORDERED: KCL 20 MEQ/100 ML IVPREMIX* 20 MEQ/100 ML BAG IV ONE (07:47)
[2018-03-23] MEDS: HYDROmorphone INJ* 2 MG/ML CARPUJECT SYRINGE IV SLOW PU PRN ×6 (08:27→23:02)
[2018-03-23] MEDS: Thiamine TAB* 100 MG TAB PO SCH (08:30)
[2018-03-23] MEDS: Nicotine PATCH 21 MG/24 HR* PATCH TRANSDERM SCH (08:30)
[2018-03-23] MEDS: Metoprolol Tartrate TAB* 25 MG PO SCH ×2 (08:30→20:40)
[2018-03-23] MEDS: Folic Acid TAB* 1 MG PO SCH (08:30)
[2018-03-23] MEDS: Multivitamins/Minerals TAB PO SCH (08:30)
[2018-03-23] MEDS ORDERED: Potassium Chloride IV* 20 MEQ in NS 0.9% 100 ML* 100 ML IVPB ONE (09:00)
[2018-03-23] MEDS ORDERED: NS 0.9% 100 ML* 100 ML ONE (10:00)
--- NOTE | 2018-03-23 11:46 | PN ---
Subjective Date of Service: 03/23/18 Interval History: Patient seen and examined at bedside. Denies fever, chills, shortness of breath , chest discomfort, N/V/D. Pt continues to have ABD discomfort, that is diffuse but worse at the RUQ. Family History: Unchanged from Admission Social History: Unchanged from Admission Past Medical History: Unchanged from Admission Objective Active Medications: Enoxaparin Sodium (Lovenox(*)) 40 mg SUBCUT Q24H [facility] Folic Acid (Folvite Tab*) 1 mg PO DAILY [facility] Hydromorphone HCl (Dilaudid Inj*) 0.5 mg IV SLOW PU Q1H PRN Reason: PAIN Sodium Chloride (Ns 0.9% 1000 Ml*) 1,000 mls @ 100 mls/hr IV PER RATE [facility] Piperacillin Sod/Tazobactam (Sod 13.5 gm/ Sodium Chloride) 500 mls @ 20.833 mls /hr IVPB Q24H [facility] Lorazepam (Ativan Tab(*)) 0 - 6 mg PO .[facility] PROTOCOL [facility] Metoprolol Tartrate (Lopressor Tab*) 25 mg PO BID [facility] Multivitamins/Minerals (Theragran/Minerals Tab*) 1 tab PO DAILY [facility] Nicotine (Nicotine Patch 21 Mg/24 Hr*) 1 patch TRANSDERM DAILY@0800 [facility] Nicotine Polacrilex (Nicotine Gum*) 2 mg PO Q2H PRN Reason: CRAVING Ondansetron HCl (Zofran Inj*) 4 mg IV Q4H PRN Reason: NAUSEA/VOMITING Pharmacy Consult (Zosyn Per Pharmacy*) 1 note FOLLOW UP .ZOSYN PER PHARMACY [facility] Pharmacy Profile Note (Nicotine Patch Removal Note*) 1 note PATCH OFF 2100 [facility] Thiamine HCl (Vitamin B-1 Tab*) 100 mg PO DAILY [facility] Vital Signs - 8 hr 03/23/18 03/23/18 03/23/18 07:37 08:00 08:27 Temperature 98.3 F Pulse Rate 68 Respiratory 18 18 18 Rate Blood Pressure 124/59 (mmHg) O2 Sat by Pulse 95 Oximetry 03/23/18 03/23/18 10:04 10:25 Temperature Pulse Rate Respiratory 18 18 Rate Blood Pressure (mmHg) O2 Sat by Pulse Oximetry Oxygen Devices in Use Now: None Appearance: NAD, sitting up in bed Ears/Nose/Mouth/Throat: Mucous Membranes Moist Respiratory: Symmetrical Chest Expansion and Respiratory Effort, Clear to Auscultation Cardiovascular: NL Sounds; No Murmurs; No JVD, RRR Abdominal: - - Bowel sounds present, ABD soft, large and tender in the RUQ Extremities: No Edema Skin: No Rash or Ulcers Neurological: Alert and Oriented x 3, NL Muscle Strength and Tone Lines/Tubes/Other Access: Clean, Dry and Intact Peripheral IV - site benign Result Diagrams: 03/23/18 06:25 03/23/18 06:25 Additional Lab and Data: Microbiology and Other Data: Microbiology 03/19/18 23:50 Aerobic Blood Culture - Preliminary Blood Venous No Growth Day 1 Anaerobic Blood Culture - Preliminary No Growth Day 1 03/19/18 17:08 Aerobic Blood Culture - Preliminary Blood Venous No Growth Day 1 Anaerobic Blood Culture - Preliminary No Growth Day 1 Diagnostic Imaging: TTE on 03/22/18, Summary: There was not any prior study for comparison. Conclusions Global left ventricular wall motion and contractility are within normal limits. There is normal left ventricular systolic function. The estimated ejection fraction is 55-60%. The right ventricular global systolic function is normal. There is a trace of aortic regurgitation. There is no evidence of aortic stenosis. There is mild mitral regurgitation. There is trace tricuspid regurgitation. No pulmonary hypertension is noted. There is no significant pericardial effusion. Cardiac stress test - See report/cardiology note. Assess/Plan/Problems-Billing Assessment: Ms. Bernardo is a 52 yo female with PMH significant for HTN, sleep apnea, anxiety , tobacco abuse, diverticulosis, polycythemia vera, DVT and alcohol abuse who presented to the emergency room with complaints of right upper quad pain and was found to have cholelithiasis with mild gallbladder wall thickening. - Patient Problems (1) Cholelithiasis Comment: - Afebrile, leukocytosis resolved, continues to have elevated CRP - Management per surgery - Continue zosyn and IVFs - Plan for surgery later today. According to the RCRI she has 1 point, placing her at a class II risk of 0.9% risk of a major cardiac event. Pt reports a history of MR, but unable to locate an echo record. She has new T-wave inversion on EKG when compaired to prior. Cardiology consulted and echo obtained, stress test normal per Cardiology. Pt cleared by Cardiology for surgery. (2) Acute electrocardiogram changes Code(s): R94.31 - ABNORMAL ELECTROCARDIOGRAM [ECG] [EKG] SNOMED Code(s): 288480776 Comment: - Pt has diffuse T wave inversions when compared to 2012 EKG - Echo without significant findings - Cardiology consult, input appreciated - Stress test normal per Cardiology (3) Hypoxia Code(s): R09.02 - HYPOXEMIA SNOMED Code(s): 417804833 Comment: - Denies shortness of breath, improving - Suspect secondary to atelectasis - CTA negative for PE, shows atelectasis - Encouraged IS use, cough & deep breathing (4) Electrolyte abnormality Code(s): E87.8 - OTH DISORDERS OF ELECTROLYTE AND FLUID BALANCE, NEC SNOMED Code(s): 842387059 Comment: - Hypokalemia. Will give PO replacement and recheck labs in the AM - Hypomnesemia. Received replacement, resolved (5) Alcohol abuse Code(s): F10.10 - ALCOHOL ABUSE, UNCOMPLICATED SNOMED Code(s): 83547741 Comment: - WAM 0-2 - Discontinue WAM protocol (6) HTN (hypertension) Code(s): I10 - ESSENTIAL (PRIMARY) HYPERTENSION SNOMED Code(s): 35714334 Comment: - SBP 90-120's - Hold Norvasc - Continue metoprolol with hold parameters (7) Polycythemia vera Code(s): D45 - POLYCYTHEMIA VERA SNOMED Code(s): 654448358 Comment: - Platelets are stable - Continue to follow with Dr. Randhawa every 6 months outpatient (8) History of DVT (deep vein thrombosis) Code(s): Z86.718 - PERSONAL HISTORY OF OTHER VENOUS THROMBOSIS AND EMBOLISM SNOMED Code(s): 344213985 Comment: - Xarelto held for possible surgery - Resume Xarelto when ok with surgery (9) Tobacco abuse Code(s): Z72.0 - TOBACCO USE SNOMED Code(s): 401595822 Comment: - Encouraged smoking cessation - Continue nicotine replacement (10) Sleep apnea Code(s): G47.30 - SLEEP APNEA, UNSPECIFIED SNOMED Code(s): 48103426 Comment: - Continue CPAP (11) DVT prophylaxis Code(s): KLC2355 - SNOMED Code(s): 529389232 Comment: - Lovenox and SCDs (12) Full code status Code(s): Z78.9 - OTHER SPECIFIED HEALTH STATUS SNOMED Code(s): 933536265 Status and Disposition: Inpatient. Disposition per Surgery. Thank you for this consultation, we will continue to follow.
[2018-03-23] MEDS ORDERED: fentaNYL* 50 MCG/ML 2 ML VIAL (100 MCG VIAL) ONE ×3 (12:55→17:09)
[2018-03-23] MEDS ORDERED: Propofol* 10 MG/ML 20 ML BTL IV PUSH ONE (12:55)
[2018-03-23] MEDS ORDERED: Midazolam* 1 MG/ML 5 ML VIAL (5 MG) ONE (12:56)
[2018-03-23] MEDS ORDERED: Atracurium* 10 MG/ML 10 ML VIAL ONE (12:56)
[2018-03-23] MEDS ORDERED: Bupivacaine 0.25% SDV* 30 ML ONE (13:01)
--- NOTE | 2018-03-23 15:04 | PN ---
Progress Note - Progress Note Date of Service: 03/23/18 Note: Laparoscopic cholecystectomy for acute cholecystitis Surg Schwed Asst Christensen Anesth Sanito EBL 150 ml Drain SANDRO Full note dictated
[2018-03-23] MEDS ORDERED: HYDROmorphone INJ* 1 MG/ML CARPUJECT SYRINGE IV PRN (15:14)
[2018-03-23] MEDS ORDERED: DiMENhydriNATE IV* 50 MG/ML VIAL IV PUSH PRN (15:14)
[2018-03-23] MEDS ORDERED: Ondansetron INJ* 2 MG/ML VIAL IV PRN (15:14)
[2018-03-23] MEDS ORDERED: Naloxone* 0.4 MG/ML 1 ML VIAL IV PRN (15:14)
[2018-03-23] MEDS: fentaNYL* 50 MCG/ML 2 ML VIAL (100 MCG VIAL) IV PRN ×5 (16:46→17:10)
[2018-03-23] MEDS: oxyCODONE/Acetamin 5/325 MG* TAB PO PRN ×2 (17:36→21:30)
[2018-03-23] MEDS: Enoxaparin(*) 40 MG/0.4 ML SYR SUBCUT SCH (17:36)
[2018-03-23] MEDS: NS 0.9% 1000 ML* 1,000 ML IV SCH (17:36)
--- NOTE | 2018-03-23 19:27 | OP ---
CC: Dr. Tirado; [facility]; Dr. Court Randhawa; Dr. Moise Muhammad OPERATIVE REPORT: DATE OF OPERATION: 03/23/18 DATE OF : 69 SURGEON: Barrera Tirado MD ENTRY LEVEL DRAFTER: Amparo. ANESTHESIOLOGIST: Dr. Mayo. ANESTHESIA: General anesthetic, local infiltration. PRE-OP DIAGNOSIS: Acute cholecystitis. POST-OP DIAGNOSIS: Acute cholecystitis. OPERATIVE PROCEDURE: Laparoscopic cholecystectomy. DESCRIPTION OF PROCEDURE: The patient was supine on the operative table. After adequate general ane sthetic, compression stockings, Claudia Hugger warmer, and intravenous antibiotics, the abdomen was prep ped with antiseptic, draped in a sterile fashion. Local infiltrative anesthesia was administered. A small umbilical incision was created. Blunt port cannula was placed. Insufflation was carried out with carbon dioxide. Additional cannulae, 12-mm subxiphoid and 5-mm right upper quadrant and right a nterior axillary line were placed through small stab wounds under direct vision. Gallbladder was acu tely inflamed and omentum was densely adherent. This was able to be peeled down. There was fibrinop urulent exudate over the surface. The gallbladder was drained to allow it to be grasped and it was r etracted upward and areolar tissue was bluntly dissected down off the region of the cystic duct and c ystic artery. There were stones wedged down in the neck of the gallbladder and these were milked upw michael to allow the cystic duct to be doubly clipped and divided and artery was clipped and divided. Ga llbladder was taken off the liver bed using electrocautery. Hemostasis was obtained using electrocau sri. The gallbladder was placed in a retrieval bag and brought out through the subxiphoid site, whi ch needed to be enlarged somewhat for that purpose. The operative field was irrigated with a total of about 3 L of saline. Free fluid was suctioned out. SANDRO drain was placed in the subhepatic space and out through the lateral incision, sutured to the skin with 3-0 Prolene and fascia of the 2 large inc isions was closed with 0 Vicryl and skin with 5-0 Vicryl followed by Steri- Strips. She tolerated th e procedure well, was awakened and brought to Recovery in good condition. There were no complication s. Drain was Lorenzo-Freitas drain. Sponge and instrument counts correct. Estimated blood loss 150 mL . [id number]/[facility] #: [id number]
[2018-03-23] MEDS: Piperacillin/Tazobactam 13.5 GM IV 24 hour continuous infusion IVPB SCH ×2 (20:40)
[2018-03-23] MEDS: Nicotine Patch Removal NOTE PATCH OFF SCH (20:52)
[2018-03-24] MEDS: NS 0.9% 1000 ML* 1,000 ML IV SCH (03:40)
[2018-03-24] MEDS: HYDROmorphone INJ* 2 MG/ML CARPUJECT SYRINGE IV SLOW PU PRN (03:40)
[2018-03-24] MEDS: oxyCODONE/Acetamin 5/325 MG* TAB PO PRN ×2 (03:41→09:15)
[2018-03-24 06:25] LABS: ABS Basophils 0 10^3/ul (0-0.2); ABS Eosinophils 0 10^3/ul (0-0.6); ABS Lymphocytes 0.5 10^3/ul (1.0-4.8); ABS Monocytes 0.8 10^3/ul (0-0.8); ABS Nucleated RBC 0 10^3/ul; Eosinophil % 0 % (0-6); Hematocrit 32 % (35-47); Hemoglobin 10.2 g/dl (12.0-16.0); Lymphocyte % 5.7 % (25-47); Mean Corpuscular HGB Conc 32 g/dl (31-36); Mean Corpuscular Hemoglobin 29 pg (27-31); Mean Corpuscular Volume 89 fL (80-97); Mean Platelet Volume 8.4 um3 (7.4-10.4); Nucleated Red Blood Cells % 0; Platelet Count 203 10^3/ul (150-450); Red Blood Count 3.55 10^6/ul (4.0-5.4); Red Cell Distribution Width 20 % (10.5-15); White Blood Count 8.3 10^3/ul (3.5-10.8)
[2018-03-24 06:40] LABS: EGFR Non-African American 179.3 (>60)
[2018-03-24 08:40] VITALS: BP 120/70
[2018-03-24] MEDS: Nicotine PATCH 21 MG/24 HR* PATCH TRANSDERM SCH (08:40)
[2018-03-24] MEDS: Folic Acid TAB* 1 MG PO SCH (09:15)
[2018-03-24] MEDS: Multivitamins/Minerals TAB PO SCH (09:15)
[2018-03-24] MEDS: Metoprolol Tartrate TAB* 25 MG PO SCH (09:15)
--- NOTE | 2018-03-24 10:47 | PN ---
Progress Note - Progress Note Date of Service: 03/24/18 Note: S: patient seen with and examined by Dr. Tirado. c/o 5/10 pain, which is controlled w/ Percocet. No N/V. Charlotte po. O: Vital Signs - 8 hr 03/24/18 03/24/18 03/24/18 03:40 03:41 04:10 Temperature 97.8 F Pulse Rate 57 Respiratory 16 16 16 Rate Blood Pressure 113/65 (mmHg) O2 Sat by Pulse 97 91 Oximetry 03/24/18 03/24/18 03/24/18 04:39 06:12 08:01 Temperature 97.7 F Pulse Rate 66 Respiratory 16 16 18 Rate Blood Pressure 120/70 (mmHg) O2 Sat by Pulse 92 Oximetry 03/24/18 03/24/18 09:15 09:24 Temperature Pulse Rate Respiratory 18 Rate Blood Pressure (mmHg) O2 Sat by Pulse 87 Oximetry Intake and Output Last 24 Hours 03/22/18 03/23/18 03/24/18 03/25/18 06:59 06:59 06:59 06:59 Intake Total 4000 1733 3670 120 Output Total 550 450 675 Balance 3450 1283 2995 120 Intake: IV Fluids 985 1100 1800 LR 1600 Megneseum Salfate 100 NS (0.9%) 985 1000 200 IVPB 1335 633 450 ABX - ZOSYN 411 383 450 NS (0.9%) 924 Potassium Chloride with 250 40 meq NS Oral 1680 0 1420 120 Output: SANDRO #1 125 Urine 550 450 400 Estimated Blood Loss 150 Other: Estimated Void Small Medium Medium # Bowel Movements 0 0 # Voids 1 3 3 Abd: incisions ok; SANDRO: nonbilious serosang -> d/c'd by Dr. Tirado A/P: s/p lap grace for acute cholecystitis, doing well; home today (on Augmentin x 5 d). Instructions reviewed. She'll resume her usual Xarelto beginning 03/25/18. Office f/u 04/01.
--- NOTE | 2018-03-24 16:07 | DS ---
CC: Daniela Hernandez NP at [facility]; Dr. Court Randhawa; [facility]* DISCHARGE SUMMARY: DATE OF ADMISSION: 03/19/18 DATE OF DISCHARGE: 03/24/18 ATTENDING SURGEON: Dr. Barrera Tirado* (dictated by CONNIE Abraham). HOSPITAL COURSE: Please refer to admission history and physical as well as operative note for details. Briefly, the patient was admitted with right upper quadrant pain following colonoscopy. Workup was negative for free air, but did show inflammation in the area of the gallbladder. She also had some mild elevation of liver function tests. Plans were for OR for laparoscopic cholecystectomy. However, there were noted to be EKG changes (abnormal T waves) that warranted Cardiology evaluation. She was seen by Dr. Muhammad. A nuclear stress test was performed, which he read himself as being normal. She continued to have pain and was being treated with IV antibiotics. She was taken to the operating room on 03/23/18, at which time laparoscopic cholecystectomy was performed. A drain was left in place and she was continued overnight on IV Zosyn. As of the morning of discharge, she was seen by Dr. Tirado, was feeling better and pain was controlled with oral medications. She was also tolerating oral diet. PHYSICAL EXAMINATION: Temperature 97.7, blood pressure 120/70, pulse 66, respirations 18, room air saturation 92%. General: Appears comfortable, obese female, in no acute distress. Abdomen: Per Dr. Tirado's exam, Lorenzo Freitas drain with serosanguineous drainage only. Drain was removed by Dr. Tirado and dry sterile dressing placed. IMPRESSION: Status post laparoscopic cholecystectomy for acute calculous cholecystitis, doing well on the morning of postop day 1. PLAN: Home today. To complete 5 more days of oral antibiotics (Augmentin 875 mg b.i.d.). We decided to have her resume her usual Xarelto as of tomorrow. Her other medications will be resumed per her usual regimen. She has a followup scheduled with our office on 04/01/18. She will continue medical followup with Daniela Hernandez NP. CONNIE ABRAHAM [id number]/[facility] #: [id number] MTDD
== END 2018-03-24 10:56 | disposition home or self-care (01) | DRG 263 ==
LOC: ED 09:46 → SSU 15:00 → OBSVTOIN 03-21 13:31
PROVIDERS: ADMIT Surgery; ATTEND Surgery
PROC: 5A09357 Assistance with Respiratory Ventilation, Less than 24 Consecutive Hours, Continuous Positive Airway Pressure (ICD-10-PCS; 2018-03-22)
PROC: 0FT44ZZ Resection of Gallbladder, Percutaneous Endoscopic Approach (ICD-10-PCS; principal; 2018-03-23 13:00)
DX: K80.00 Calculus of gallbladder with acute cholecystitis without obstruction (principal); J98.11 Atelectasis; I10 Essential (primary) hypertension; K21.9 Gastro-esophageal reflux disease without esophagitis; F41.9 Anxiety disorder, unspecified; F32.9 Major depressive disorder, single episode, unspecified; F17.210 Nicotine dependence, cigarettes, uncomplicated; D45 Polycythemia vera; E66.9 Obesity, unspecified; G47.33 Obstructive sleep apnea (adult) (pediatric); K57.90 Diverticulosis of intestine, part unspecified, without perforation or abscess without bleeding; K42.9 Umbilical hernia without obstruction or gangrene; I34.0 Nonrheumatic mitral (valve) insufficiency; R09.02 Hypoxemia; F10.10 Alcohol abuse, uncomplicated; Y90.9 Presence of alcohol in blood, level not specified; E83.42 Hypomagnesemia; E87.6 Hypokalemia; R94.31 Abnormal electrocardiogram [ECG] [EKG]; Z91.048 Other nonmedicinal substance allergy status; Z88.4 Allergy status to anesthetic agent; Z86.718 Personal history of other venous thrombosis and embolism; Z68.31 Body mass index [BMI] 31.0-31.9, adult; Z82.49 Family history of ischemic heart disease and other diseases of the circulatory system
CPT/HCPCS: 36415; 71275; 74176; 76705; 78452; 80048; 80053; 81003; 81015; 82550; 82553; 83605; 83690; 83735; 84484; 84702; 85025; 85027; 85610; 85730; 86140; 87040; 87077; 87086; 88304; 93005; 93017; 93306; 94660; 99284; A9270-GY; A9502; J0280; J1170; J1650; J2250; J2270; J2405; J2543; J2704; J2785; J3010; J3475; J3480; Q9967